=== PATIENT | female | born 1985 | race American Indian/Alaskan Native ===

== ENCOUNTER 2018-11-03 13:05 | Emergency (ER) | payer OTHER, SELFPAY ==
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
--- NOTE | 2018-11-03 15:30 | XRay Report ---
PROCEDURE: XR SHOULDER 2+V LT TECHNIQUE: Left shoulder radiograph, 3 views. HISTORY: shoulder pain COMPARISONS: None currently available. FINDINGS: There is no acute fracture. There is no evidence for healing fracture. There is no acute dislocation. No significant arthrosis. There is no cortical destruction to suggest osteomyelitis. There are no suspicious osseous lesions. There are no radiopaque foreign objects. IMPRESSION: * No acute osseous findings. This document is electronically signed by Dayo Boswell MD., November 03 2018 03:28:01 PM ET
[2018-11-03] MEDS ORDERED: IBUPROFEN PO ONE (17:59)
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
[2018-11-03 18:33] VITALS: BP 128/74
== END 2018-11-03 18:32 | disposition home or self-care (01) ==
LOC: ED 13:05
DX: S46.912A Strain of unspecified muscle, fascia and tendon at shoulder and upper arm level, left arm, initial encounter (principal); F17.200 Nicotine dependence, unspecified, uncomplicated; F12.10 Cannabis abuse, uncomplicated; X58.XXXA Exposure to other specified factors, initial encounter; Y93.89 Activity, other specified; Y92.89 Other specified places as the place of occurrence of the external cause; Y99.8 Other external cause status

== ENCOUNTER 2018-12-15 11:32 | Emergency (ER) | payer OTHER, SELFPAY ==
[2018-12-15 11:39] VITALS: BP 111/75
[2018-12-15] MEDS ORDERED: DECADRON IV ONE (11:48)
[2018-12-15] MEDS ORDERED: PEPCID IV ONE (11:48)
--- NOTE | 2018-12-15 11:48 | Emergency Department Report ---
HPI - General Chief Complaint: Allergic Reaction Time Seen by Provider: 12/15/18 11:47 - HPI HPI: Patient states that she is currently living in a hotel and 3 days ago she's was cleaning up in her room and started having some itching. Patient states that it started out as small red bumps she took some Benadryl to sleep. Patient states that yesterday she developed hives diffusely and also has some swelling to her lips. Patient states that there was itchy but she denies shortness of breath. Patient also denies any nausea vomiting. Patient states that she is using same cleaning products cosmetics and the same foods that she always has is not sure why she is having allergic reaction. ED Past Medical Hx - Past Medical History Previous Medical History?: No - Surgical History Past Surgical History?: No - Social History Smoking Status: Current Every Day Smoker Substance Use Type: None - Medications Home Medications: Home Medications Medication Instructions Recorded Confirmed Last Taken Type Cyclobenzaprine [Flexeril] 10 mg PO QHS PRN #20 tablet 11/03/18 Unknown Rx Ibuprofen [Motrin 800 MG tab] 800 mg PO TID #30 tablet 11/03/18 Unknown Rx Famotidine [Pepcid] 20 mg PO BID #10 tablet 12/15/18 Unknown Rx predniSONE [Deltasone] 20 mg PO QDAY #5 tab 12/15/18 Unknown Rx ED Review of Systems ROS: Stated complaint: ALLERGIC REACTION Other details as noted in HPI Comment: All other systems reviewed and negative Physical Exam - Physical Exam Vital Signs: Vital Signs 12/15/18 11:38 Temperature 98.5 F Pulse Rate 69 Respiratory 16 Rate Blood Pressure 111/75 O2 Sat by Pulse 98 Oximetry General: Patient is alert and oriented 3 in no acute distress Physical Exam: Patient's heart exam shows normal heart tones. Lungs are clear to auscultation. Abdomen is soft and nontender. Body Four View: 1 - Area of urticaria 2 - Upper and lower lip edema. There is no issues with her tongue is not elevated. ED Course Vital Signs 12/15/18 11:38 Temperature 98.5 F Pulse Rate 69 Respiratory 16 Rate Blood Pressure 111/75 O2 Sat by Pulse 98 Oximetry ED Medical Decision Making - Medical Decision Making Patient had taken multiple Benadryl prior to arrival. His only 1 area of hives seen there is no lip edema. Patient's oropharynx is clear. Patient does not appear to be in any distress. The patient was given Decadron and Pepcid. Patient was discharged home to continue the Benadryl also be given steroids for the next several days. Critical care attestation.: If time is entered above; I have spent that time in minutes in the direct care of this critically ill patient, excluding procedure time. ED Disposition Clinical Impression: Allergic urticaria Disposition: DC-01 TO HOME OR SELFCARE Is pt being admited?: No Does the pt Need Aspirin: No Condition: Stable Instructions: Urticaria (ED) Additional Instructions: Please continue to take 25 mg of Benadryl 3 times a day for the next 3 days Referrals: STEPHANIE WALLS [Primary Care Provider] - 3-5 Days Time of Disposition: 12:26
== END 2018-12-15 12:36 | disposition home or self-care (01) ==
LOC: ED 11:32
DX: L50.0 Allergic urticaria (principal); F17.200 Nicotine dependence, unspecified, uncomplicated
CPT/HCPCS: 96374; 96375; 99282; J1100